=== PATIENT | female | born 1970 | race Caucasian/White ===

== ENCOUNTER 2017-09-11 06:17 | Day surgery (SDC) | payer OTHER ==
[2017-09-11] MEDS ORDERED: LIDOCAINE 4% SOLUTION 50 ML BTL (07:41)
[2017-09-11] MEDS ORDERED: MIDAZOLAM 1 MG/ML 2 ML INJ ×3 (08:19)
[2017-09-11] MEDS ORDERED: FENTAnyl 50 MCG/ML VIAL (08:19)
== END 2017-09-11 11:21 | disposition home or self-care (01) ==
LOC: GIL 06:17
DX: R19.5 Other fecal abnormalities (principal); K29.50 Unspecified chronic gastritis without bleeding; K31.7 Polyp of stomach and duodenum; D12.6 Benign neoplasm of colon, unspecified; K64.4 Residual hemorrhoidal skin tags
CPT/HCPCS: 43239; 84703; 88305; 88312